=== PATIENT | female | born 1985 | race Caucasian/White ===

== ENCOUNTER 2018-02-27 19:30 | Emergency (ER) | payer BC ==
[~2018-02-27] VITALS: Ht 160 cm; Wt 155.6 kg
[2018-02-27] MEDS ORDERED: IBUPROFEN 400 MG TAB PO STA (20:11)
== END 2018-02-27 21:38 | disposition home or self-care (01) ==
LOC: FSED 19:30
DX: R07.89 Other chest pain (principal)
CPT/HCPCS: 71045; 80053; 81003; 81025; 82553; 84484; 85025; 85379; 99284